=== PATIENT | male | born 1965 | race Caucasian/White ===

== ENCOUNTER 2018-07-10 11:53 | Outpatient (CLI) | payer OTHER, SELFPAY ==
[2018-07-10 13:34] LABS: ALT 39 U/L (12-78); AST 24 U/L (15-37); Albumin 3.8 g/dL (3.4-5.0); Alkaline Phosphatase 84 U/L (46-116); Anion Gap 9.4 mmol/L (3-11); BUN 17 mg/dL (7-18); Bilirubin, Total 0.6 mg/dL (0.2-1.0); CO2 27.6 mmol/L (21.0-32.0); CREATININE 1.01 mg/dL (0.70-1.30); Calcium 8.9 mg/dL (8.5-10.1); Chloride 102 mmol/L (98-107); Cholesterol 193 mg/dL (50-200); Glucose 99 mg/dL (70-100); HDL Cholesterol 52 mg/dL (40-60); LDL CHOLESTEROL 117 mg/dL (<100); Potassium 4.3 mmol/L (3.5-5.1); Sodium 139 mmol/L (136-145); Triglyceride 142 mg/dL (30-150)
[2018-07-10 13:50] LABS: Total Protein 6.8 g/dL (6.4-8.2)
== END 2018-07-10 12:13 ==
PROVIDERS: PCP Physician Assistant Medical; Visit Provider Nurse Practitioner Family
DX: E78.5 Hyperlipidemia, unspecified (principal); R00.0 Tachycardia, unspecified
CPT/HCPCS: 36415; 80053; 80061; 83721

== ENCOUNTER 2019-12-21 10:42 | Outpatient (REF) | payer OTHER, SELFPAY ==
[2019-12-21 19:57] LABS: ALT 36 U/L (16-63); AST 21 U/L (15-37); Calculated LDL 83 mg/dL (<100); Cholesterol 154 mg/dL (<200); Glucose 129 mg/dL (74-106); HDL Cholesterol 50 mg/dL (40-60); Triglyceride 109 mg/dL (<150)
[2019-12-21 20:10] LABS: Creatine Kinase 247 U/L (39-308)
== END 2019-12-21 11:02 ==
LOC: NCHCN 10:42
PROVIDERS: PCP Physician Assistant Medical; Visit Provider Nurse Practitioner Family
DX: Z00.00 Encounter for general adult medical examination without abnormal findings (principal); E78.5 Hyperlipidemia, unspecified; Z86.79 Personal history of other diseases of the circulatory system
CPT/HCPCS: 80061; 82550; 82947; 84450; 84460

== ENCOUNTER 2020-04-24 21:29 | Outpatient (REF) | payer OTHER, SELFPAY ==
[2020-04-24 19:12] LABS: Hemoglobin A1C 6.7 % (<5.7)
== END 2020-04-24 21:49 ==
LOC: NCHCN 21:29
PROVIDERS: PCP Physician Assistant Medical; Visit Provider Nurse Practitioner Family
DX: Z00.00 Encounter for general adult medical examination without abnormal findings (principal); R73.9 Hyperglycemia, unspecified
CPT/HCPCS: 83036

== ENCOUNTER 2020-05-12 18:00 | Outpatient (REF) | payer OTHER, SELFPAY ==
[2020-05-12 19:34] LABS: Anion Gap 9.2 mmol/L (3-11); BUN 23 mg/dL (7-18); CO2 25.8 mmol/L (21.0-32.0); CREATININE 1.15 mg/dL (0.70-1.30); Calcium 8.9 mg/dL (8.5-10.1); Chloride 104 mmol/L (98-107); Glucose 154 mg/dL (74-106); Potassium 3.8 mmol/L (3.5-5.1); Sodium 139 mmol/L (136-145)
== END 2020-05-12 18:20 ==
LOC: NCHCN 18:00
PROVIDERS: PCP Nurse Practitioner Family; Visit Provider Nurse Practitioner Family
DX: E11.9 Type 2 diabetes mellitus without complications (principal); E78.5 Hyperlipidemia, unspecified
CPT/HCPCS: 80048

== ENCOUNTER 2020-06-02 14:58 | Outpatient (REF) | payer OTHER, SELFPAY ==
--- NOTE | 2020-06-02 14:51 | SKI_PTH ---
PATIENT: Tree Luis LOC: [facility] U#:[id number] AGE/SX: 54/M ROOM: RE06/02/[address]: Lele Barnes DO : 1965 BED: DIS: 06/02/2020 SPEC #: [id number] RECD: 06/03/20 12:07 STATUS: CORIE REQ #: [id number] ARTURO: 06/02/20 14:[address]: Lele Barnes DEPT: Surgical Specimen RECD BY: Shy Russell ENTERED: 06/03/20 12:08 SP TYPE: SKI OTHR DR: Shoshana Wade Tissues: 1 - SKIN BIOPSY(SHAVE/PUNCH) Procedures: SKIN LEVEL 4 Comments: [id number] ([id number] [facility] [place])
== END 2020-06-02 15:18 ==
LOC: LBN 14:58
PROVIDERS: PCP Nurse Practitioner Family; Visit Provider Otolaryngology Otolaryngology/Facial Plastic Surgery
DX: L82.1 Other seborrheic keratosis (principal)
CPT/HCPCS: 88305

== ENCOUNTER 2020-06-23 21:36 | Outpatient (REF) | payer OTHER, SELFPAY ==
[2020-06-23 20:18] LABS: ALT 43 U/L (16-63); AST 25 U/L (15-37); HDL Cholesterol 47 mg/dL (40-60); LDL CHOLESTEROL 91 mg/dL (<100)
[2020-06-23 20:30] LABS: Creatine Kinase 202 U/L (39-308); Uric Acid 5.6 mg/dL (3.5-7.2)
== END 2020-06-23 21:56 ==
LOC: NCHCN 21:36
PROVIDERS: PCP Nurse Practitioner Family; Visit Provider Nurse Practitioner Family
DX: E78.5 Hyperlipidemia, unspecified (principal)
CPT/HCPCS: 82550; 83721; 83718; 84450; 84460; 84550

== ENCOUNTER 2020-12-15 19:55 | Outpatient (REF) | payer OTHER, SELFPAY ==
[2020-12-15 19:43] LABS: Hemoglobin A1C 6.4 % (<5.7)
[2020-12-16 17:20] LABS: PSA, Screening 0.4 ng/mL (0.0-3.5)
== END 2020-12-15 19:56 | disposition home or self-care (01) ==
LOC: NCHCN 19:55
PROVIDERS: PCP Nurse Practitioner Family; Visit Provider Nurse Practitioner Family
DX: Z00.00 Encounter for general adult medical examination without abnormal findings (principal); E11.9 Type 2 diabetes mellitus without complications; Z12.5 Encounter for screening for malignant neoplasm of prostate
CPT/HCPCS: 84153; 83036

== ENCOUNTER 2021-05-29 10:36 | Outpatient (REF) | payer OTHER, SELFPAY ==
[2021-05-30 16:10] LABS: COVID-19 RT-PCR UVMMC Result Negative (Negative)
== END 2021-05-29 10:37 | disposition home or self-care (01) ==
LOC: LBN 10:36
PROVIDERS: PCP Nurse Practitioner Family; Visit Provider Physician Assistant Medical
DX: Z20.822 Contact with and (suspected) exposure to COVID-19 (principal); J06.9 Acute upper respiratory infection, unspecified
CPT/HCPCS: U0003

== ENCOUNTER 2021-06-24 13:48 | Outpatient (REF) | payer OTHER, SELFPAY ==
[2021-06-24 22:20] LABS: Abs Immature Grans 0.03 10^3/uL (0.0-0.06); Absolute Basophil Count 0.02 10^3/uL (0.0-0.2); Absolute Eosinophil Count 0.13 10^3/uL (0.0-0.7); Absolute Lymphocyte Count 2.29 10^3/uL (1.2-3.4); Absolute Monocyte Count 0.74 10^3/uL (0.1-0.8); Absolute Neutrophil Count 4.06 10^3/uL (1.2-6.7); Basophils % 0.3; Eosinophils % 1.8; HCT 46.5 % (40.0-50.0); HGB 15.7 g/dL (13.5-17.5); Immature Grans % 0.4; Lymphocytes % 31.5; MCH 30.7 pg (27.0-33.0); MCHC 33.8 % (32.0-36.0); MPV 10.2 fL (8.0-11.0); Monocytes % 10.2; Neutrophils % 55.8; Nucleated RBC 0 %; Platelet Count 271 10^3/uL (130-400); RBC 5.11 10^6/uL (4.36-5.78); RDW 12.1 % (11.8-14.1); RDW-SD 40.1 fL; WBC 7.27 10^3/uL (4.4-10.8)
[2021-06-24 22:36] LABS: ALT 34 U/L (16-63); AST 26 U/L (15-37); Albumin 3.9 g/dL (3.4-5.0); Alkaline Phosphatase 104 U/L (46-116); Anion Gap 12.4 mmol/L (3-11); BUN 26 mg/dL (7-18); Bilirubin, Total 0.7 mg/dL (0.2-1.0); CO2 24.6 mmol/L (21.0-32.0); CREATININE 0.9 mg/dL (0.70-1.30); Calcium 8.9 mg/dL (8.5-10.1); Chloride 105 mmol/L (98-107); Glucose 89 mg/dL (74-106); Potassium 4.2 mmol/L (3.5-5.1); Sodium 142 mmol/L (136-145); Total Protein 6.9 g/dL (6.4-8.2)
== END 2021-06-24 13:49 | disposition home or self-care (01) ==
LOC: LBN 13:48
PROVIDERS: PCP Nurse Practitioner Family; Visit Provider Family Medicine
DX: E11.9 Type 2 diabetes mellitus without complications (principal); R05.8 Other specified cough
CPT/HCPCS: 80053; 85025

== ENCOUNTER 2021-06-24 16:31 | Outpatient (CLI) | payer OTHER, SELFPAY ==
--- NOTE | 2021-06-24 16:23 | DI.RAD_ITS ---
Exam(s) XR CHEST 2V PA LATERAL EXAM: XR CHEST 2V PA LATERAL CLINICAL HISTORY: COUGH, R05.8. TECHNIQUE: 2D digital imaging was performed. COMPARISON: CR CHEST 2 VIEWS PA,LAT from 06/06/2017 CR CHEST 2 VIEWS PA,LAT from 06/06/2017 CR CHEST 2 VIEWS PA,LAT from 01/25/2018 CR CHEST 2 VIEWS PA,LAT from 01/25/2018 FINDINGS: Heart size is normal. The mediastinum is not widened. Right lung is clear. Slightly increased markings behind left-sided heart are noted which probably ju st crowded vessels. No pleural effusions. No pneumothorax. IMPRESSION: No acute pulmonary findings. DATA REPOSITORY: RADIATION DOSE DELIVERED:
--- NOTE | 2021-06-24 16:53 | DI.VRAD_ITS ---
PROCEDURE INFORMATION: Exam: XR Chest Exam date and time: 06/24/2021 3:42 PM Age: 56 years old Clinical indication: Cough TECHNIQUE: Imaging protocol: XR of the chest. Views: 2 views. COMPARISON: CR CHEST 2 VIEWS PA,LAT 01/25/2018 10:19 PM FINDINGS: Lungs: Unremarkable. No consolidation. Pleural spaces: Unremarkable. No pleural effusion. No pneumothorax. Heart/Mediastinum: Unremarkable. No cardiomegaly. Bones/joints: Unremarkable. IMPRESSION: No acute findings. Dictated and Authenticated by: Caron Max MD. Ordering:MELONIE Mckeon MD
== END 2021-06-24 16:51 ==
PROVIDERS: PCP Nurse Practitioner Family; Visit Provider Family Medicine
DX: R05.8 Other specified cough (principal)
CPT/HCPCS: 71046

== ENCOUNTER 2022-04-20 21:03 | Outpatient (REF) | payer OTHER, SELFPAY ==
[2022-04-20 21:11] LABS: ALT 35 U/L (16-63); AST 23 U/L (15-37); Anion Gap 10.8 mmol/L (3-11); BUN 27 mg/dL (7-18); CO2 25.2 mmol/L (21.0-32.0); CREATININE 1.1 mg/dL (0.70-1.30); Calcium 9.2 mg/dL (8.5-10.1); Chloride 105 mmol/L (98-107); Glucose 98 mg/dL (74-106); HDL Cholesterol 51 mg/dL (40-60); LDL CHOLESTEROL 102 mg/dL (<100); Potassium 3.9 mmol/L (3.5-5.1); Sodium 141 mmol/L (136-145)
[2022-04-20 21:31] LABS: Creatine Kinase 176 U/L (39-308)
== END 2022-04-20 21:04 | disposition home or self-care (01) ==
LOC: NCHCN 21:03
PROVIDERS: PCP Nurse Practitioner Family; Visit Provider Nurse Practitioner Family
DX: E78.5 Hyperlipidemia, unspecified (principal)
CPT/HCPCS: 80048; 82550; 83721; 83718; 84450; 84460

== ENCOUNTER 2022-07-25 04:39 | Emergency (ER) | payer OTHER, SELFPAY ==
[2022-07-25 04:42] VITALS: BP 157/92; PULSE 89; RESP 20; O2SAT 94
--- NOTE | 2022-07-25 04:45 | DI.CT_ITS ---
Exam(s) CT RENAL COLIC WO EXAM: CT RENAL COLIC WO CLINICAL HISTORY: L flank pain, hxstones. TECHNIQUE: Imaging Protocol: Axial computed tomography images with coronal and sagittal reformatted images were created and reviewed. CONTRAST MATERIAL: Noncontrast COMPARISON: CT RENAL COLIC WO CONTRAST from 09/06/2010 FINDINGS: ABDOMEN: Lung Bases: Normal where visualized. Liver: Enlarged. Fatty infiltration. Two small cysts. No measurable mass. Gallbladder and biliary tract: No radiodense calculus or dilation. Pancreas: Normal density, no calcifications or inflammatory process. Spleen: Normal. Kidneys: Normal size, contour and axis. Small nonobstructing stone upper pole right kidney. Small no nobstructing stone lower pole left kidney. Mild left hydronephrosis secondary to a 1-[address] one at the ureterovesical junction versus bladder.. No masses seen. Adrenal glands: No masses seen. Abdominal Aorta: Abdominal portion non-dilated. Soft tissues: Small fatty containing umbilical hernia. PELVIS: Bladder: Nearly empty., no gross wall thickening. No evidence of stones.No visible mass. Bowel: No obstruction or bowel wall thickening. Diverticulosis descending and sigmoid colon. No evid ence of diverticulitis. Appendix normal. Reproductive: Unremarkable. Peritoneal cavity: No ascites, collection or mesenteric inflammatory response. Bones: Unremarkable for age.. Small fatty containing left inguinal hernia. IMPRESSION: Mild left hydronephrosis secondary to a 1-2 millimeter stone at the ureterovesical junction. RADIATION DOSE DELIVERED: 1,185.96mGy.cm Total DLP DATA REPOSITORY: All CT scans at this facility are submitted to the National Radiology Data Registry (NRDR) Dose Index Registry (DIR) with the [employer] (ACR). RADIATION OPTIMIZATION: All CT scans at this facility use at least one of these dose optimization te chniques: automated exposure control; mA and/or kV adjustment per patient size (includes targeted exa ms where dose is matched to clinical indication); or iterative reconstruction.
--- NOTE | 2022-07-25 04:56 | ED.GENADUL_ITS ---
Discharge Plan Disposition Patient Disposition: Home Condition: Improving Discharge Details Clinical Impression: Calculus of distal left ureter Primary Care Provider: Shoshana Wade ED Provider: Uriel Mejía Home Meds and New Rx's Prescriptions: Continued melatonin 3 mg capsule 3 mg PO HS PRN Centrum Silver Men 300-600-300 mcg tablet 1 tab PO DAILY metoprolol tartrate 25 mg tablet 25 mg PO BID metformin 500 mg tablet 500 mg PO BID cholecalciferol (vitamin D3) [Vitamin D3] 400 UNIT capsule 400 unit PO DAILY atorvastatin [Lipitor] 40 MG tablet 40 mg PO .QOD Label Comments: payales he takes it QOD. Discharge Instructions Instructions: Kidney Stones (ED), How to Strain Your Urine (ED) Additional Instructions: Please strain your urine as we discussed. Home to rest today. Small, frequent sips of fluids to maintain hydration. May use Tylenol and ibuprofen if needed for any further discomfort. Medical Decision Making 57-year-old male states he has had 2 days of flulike illness with body ache, low-grade fever and dry cough. Tonight he felt the abrupt onset of left flank pain radiating to his left groin associated with dark urine. He arrives to the ER alert and interactive. Most consistent with kidney stone, must exclude underlying viral process or dehydration. Patient had IV access established, screening labs obtained including viral swabs, patient given fluids and parenteral analgesia and referred for CT images. Analysis positive for large blood. Remainder of labs are reassuring. CT reveals bilateral nephro lithiasis with faint calculus at the distal left UVJ, and minimal left hydroureteronephrosis. Patient improved. Request discharge to home. His viral swabs were negative. HPI General Mode of arrival: ambulatory . Date/Time Provider Initiated Documentation: 07/25/22 04:39 . Limitations to Documentation: no limitations . Information obtained by: patient and family . History of Present Illness 57 year old M presents to the emergency department with the chief complaint of Left flank pain, described as moderate and similar to prior episodes, Quality is described as dull, and is localized to the back and left. Patient abdomen. Patient started experiencing this hour(s) and it has been intermittent and colicky. No relieving factors improve symptom(s), No exacerbating factors reported . Patient notes cough; denies chest pain, fever/chills and shortness of breath. Patient did receive the following treatments prior to arrival, none Related Data Home Medications Medication Instructions Recorded Confirmed atorvastatin 40 mg tablet (Lipitor) 40 mg PO .QOD 02/03/17 07/25/22 cholecalciferol (vitamin D3) 10 400 unit PO DAILY 01/13/18 07/25/22 mcg (400 unit) capsule (Vitamin D3) melatonin 3 mg capsule 3 mg PO HS PRN 04/29/20 07/25/22 metoprolol tartrate 25 mg tablet 25 mg PO BID 04/29/20 07/25/22 frjbidvi-wsv-hkgrm acid 300 1 tab PO DAILY 04/29/20 07/25/22 mcg-lycopene 600 mcg-lutein 300 mcg tablet (Centrum Silver Men) metformin 500 mg tablet 500 mg PO BID 05/01/20 07/25/22 Allergies Allergy/AdvReac Type Severity Reaction Status Date / Time No Known Allergies Allergy Unverified 05/01/20 09:17 General Stated Complaint: FlankPain CHAUNCEY: 3 Review of Systems Narrative: * 2 days upper respiratory illness with fever, chills, dry cough. 6 systems were reviewed and otherwise negative PFSH All Active Problems (Updated 07/25/22 @ 07:52 by Uriel Mejía MD) Calculus of distal left ureter (Acute) Nevus (Acute) Umbilical hernia (Acute) Medical History Cough Esophageal spasm Family history of colon cancer Hyperlipidemia Left knee pain Plantar fasciitis, right Right shoulder pain URI (upper respiratory infection) Surgical History Colonoscopy - IV Sedation Normal 2009 Colonoscopy - MAC (01/23/18) surgery to left fingers wisdome teeth removal Family History Other Colon cancer Social History Smoking/Tobacco Use Status: Former Tobacco Use Smoking risk assessment performed?: Yes Drug use: Never Do you feel safe in your relationship?: Yes Exam Narrative Exam Narrative: GEN: awake, alert, oriented 3. Pleasant, well groomed, interactive. HEAD: Normocephalic, atraumatic ENT: Mucous membranes moist, oropharynx unremarkable, External ear exam unremarkable EYES: PERRL, EOMI NECK: Full ROM, no ROMEO, no menigismus CHEST/RESP: Nontender, clear to auscultation bilateral, no wheeze/rhonchi/rales CARDIOVASCULAR: RRR, no murmur, rub sharath. 2+ Rad pulse bilateral ABDOMEN: Soft, tender left lower quadrant without rebound., no mass. +Bowel sounds. Left flank tender to percussion. EXT: Full ROM, no edema, no rash Neuro: Grossly normal neurologic exam, conversant, interactive. Psych: Speech fluent, thoughts congruent, affect normal Course Vital Signs Vital signs: Vital Signs Pulse 89 07/25/22 04:42 Respiratory Rate 20 07/25/22 04:42 Blood Pressure 157/92 H 07/25/22 04:42 Pulse Oximetry 94 07/25/22 04:42 Pulse 89 07/25/22 04:42 Respiratory Rate 20 07/25/22 04:42 Blood Pressure 157/92 H 07/25/22 04:42 Blood Pressure Position Sitting 07/25/22 04:42 Pulse Oximetry 94 07/25/22 04:42 Oxygen Delivery Method Room Air 07/25/22 04:42 Oxygen Flow Rate 0 07/25/22 04:42 Pain Level 4 07/25/22 04:42
[2022-07-25] MEDS: Ketorolac 15 MG/ML VIAL IVP (04:59)
[2022-07-25] MEDS: Normal Saline 500 ML 1000 ML IV (04:59)
[2022-07-25 05:01] LABS: Abs Immature Grans 0.04 10^3/uL (0.0-0.06); Absolute Basophil Count 0.04 10^3/uL (0.0-0.2); Absolute Eosinophil Count 0.02 10^3/uL (0.0-0.7); Absolute Monocyte Count 1.01 10^3/uL (0.1-0.8); Absolute Neutrophil Count 8.67 10^3/uL (1.2-6.7); Basophils % 0.4; Eosinophils % 0.2; HCT 48.4 % (40.0-50.0); HGB 16.9 g/dL (13.5-17.5); Immature Grans % 0.4; Lymphocytes % 8.4; MCH 32.1 pg (27.0-33.0); MCHC 34.9 % (32.0-36.0); MCV 92 fL (80-95); MPV 9.6 fL (8.0-11.0); Monocytes % 9.5; Neutrophils % 81.1; Platelet Count 232 10^3/uL (130-400); RBC 5.26 10^6/uL (4.36-5.78); RDW 11.6 % (11.8-14.1); RDW-SD 39.3 fL; WBC 10.68 10^3/uL (4.4-10.8)
[2022-07-25 05:07] LABS: Bilirubin Negative (Negative); Blood Large (Negative); Clarity Clear (Clear); Glucose 100 mg/dL (Negative); Ketones 40 mg/dL (Negative); Leukocyte Esterase Negative (Negative); Nitrite Negative (Negative); Specific Gravity >= 1.030 (1.005-1.025); Urobilinogen 0.2 EU/dL (Up TO 0.2)
[2022-07-25 05:17] LABS: Bacteria Rare HPF (Negative); C & S Indicated? No; Casts Negative LPF (Negative); Crystals Negative HPF (Negative); Epithelial Cells Rare HPF (Negative); Mucus Negative (Negative); WBC Negative HPF (0-5)
[2022-07-25 05:22] LABS: ALT 33 U/L (16-63); AST 23 U/L (15-37); Albumin 3.8 g/dL (3.4-5.0); Alkaline Phosphatase 103 U/L (46-116); Anion Gap 9.5 mmol/L (3-11); BUN 20 mg/dL (7-18); CO2 25.5 mmol/L (21.0-32.0); CREATININE 1.5 mg/dL (0.70-1.30); Calcium 8.8 mg/dL (8.5-10.1); Chloride 101 mmol/L (98-107); Estimated GFR 53.63 (mL/min/1.73m2); Glucose 225 mg/dL (74-106); Potassium 4.4 mmol/L (3.5-5.1); Sodium 136 mmol/L (136-145); Total Protein 7.4 g/dL (6.4-8.2)
[2022-07-25] MEDS: Ondansetron 4 MG/2 ML VIAL IVP (05:30)
--- NOTE | 2022-07-25 07:45 | DI.VRAD_ITS ---
PROCEDURE INFORMATION: Exam: CT Abdomen And Pelvis Without Contrast Exam date and time: 07/25/2022 5:21 AM Age: 57 years old Clinical indication: Abdominal pain; Flank; Left TECHNIQUE: Imaging protocol: Computed tomography of the abdomen and pelvis without contrast. COMPARISON: US AAA SCREENING 05/10/2022 6:59 AM FINDINGS: Minimal subsegmental atelectasis versus scarring Liver: Simple cysts. Fatty infiltration and mild hepatomegaly Gallbladder and bile ducts: Normal. No calcified stones. No ductal dilation. Pancreas: Normal. No ductal dilation. Spleen: Normal. No splenomegaly. Adrenal glands: Normal. No mass. Kidneys and ureters: Minimal left hydroureteronephrosis. Bilateral nephrolithiasis/nephrocalcinosis Stomach and bowel: Colonic diverticulosis. No obstruction. No mucosal thickening. Appendix: No evidence of appendicitis. Intraperitoneal space: Unremarkable. No free air. No significant fluid collection. Vasculature: Unremarkable. No abdominal aortic aneurysm. Lymph nodes: Unremarkable. No enlarged lymph nodes. Urinary bladder: Faint calculus at the distal left UVJ projecting into the bladder axial image 156 Reproductive: Unremarkable as visualized. Bones/joints: Unremarkable. No acute fracture. Soft tissues: Small fat containing periumbilical hernia IMPRESSION: Faint distal left UVJ calculus projecting into the bladder with minimal left hydroureteronephrosis Faint nephrocalcinosis/nephrolithiasis Colonic diverticulosis without diverticulitis Dictated and Authenticated by: Weston Larsen MD. Ordering:HIEU Trevino MD
== END 2022-07-25 08:03 | disposition home or self-care (01) ==
PROVIDERS: Emergency Provider Emergency Medicine; PCP Nurse Practitioner Family
DX: N13.2 Hydronephrosis with renal and ureteral calculous obstruction (principal); Z20.822 Contact with and (suspected) exposure to COVID-19
CPT/HCPCS: 36415; 80053; 96361; 96374; 96375; 99284; 74176; 81003; 81015; 85025; J1885; J2405

== ENCOUNTER 2022-09-20 16:11 | Outpatient (CLI) | payer OTHER, SELFPAY ==
--- NOTE | 2022-09-20 16:00 | DI.RAD_ITS ---
Exam(s) XR CHEST 2V PA LATERAL EXAM: XR CHEST 2V PA LATERAL CLINICAL HISTORY: COUGH-R05.8 TECHNIQUE: 2D digital imaging was performed of the chest. Two images were obtained. PA and lateral views were obtained. COMPARISON: CR,XR XR CHEST 2V PA LATERAL from 06/24/2021 FINDINGS: MEDIASTINUM: Normal. HEART: Normal. PULMONARY VASCULATURE: Normal. LUNGS: Clear. PLEURAL SPACE: No pleural effusion or pneumothorax. BONE:Within normal limits for the patient's age. OTHER FINDINGS:Normal. IMPRESSION: No acute pulmonary findings. DATA REPOSITORY: RADIATION DOSE DELIVERED:
== END 2022-09-20 16:31 ==
LOC: DI 16:12
PROVIDERS: PCP Nurse Practitioner Family; Visit Provider Nurse Practitioner Family
DX: R05.8 Other specified cough (principal)
CPT/HCPCS: 71046

== ENCOUNTER 2022-09-21 09:23 | Outpatient (CLI) | payer OTHER, SELFPAY ==
--- NOTE | 2022-09-21 | DI.CT_ITS ---
Exam(s) CT CHEST PE CTA EXAM: CT CHEST PE CTA CLINICAL HISTORY: HYPOXIA, R09.02. TECHNIQUE: Imaging Protocol: CT angiography of the chest was performed using pulmonary embolus carey col. Multi planar reconstructions were performed. CONTRAST MATERIAL: Intravenous: Omnipaque 350 Contrast volume: 100 cc COMPARISON: CT CT RENAL COLIC WO from 07/25/2022 FINDINGS: CHEST: PULMONARY ARTERIES: There are no intraluminal filling defects to suggest acute pulmonary emboli. LUNGS: There are no infiltrates nor evidence of pulmonary infarction.. There are no pleural effusions . MEDIASTINUM: There is no hilar nor mediastinal adenopathy. Visualized thyroid unremarkable. CARDIAC: Heart size is upper normal. There is no pericardial effusion.Caliber of the thoracic aorta is within normal limits. There is no significant shift of the interventricular septum. PARTIALLY VISUALIZED UPPERMOST ABDOMEN: No obvious findings OSSEOUS: No significant osseous lesions.No fractures.. IMPRESSION: 1. No evidence of acute pulmonary emboli. No evidence of pulmonary infarction.No pleural effusions. 2. No infiltrates. No intrathoracic adenopathy evident. 3.No evidence of aortic dissection. No pericardial effusion. RADIATION DOSE DELIVERED: Total DLP DATA REPOSITORY: All CT scans at this facility are submitted to the National Radiology Data Registry (NRDR) Dose Index Registry (DIR) with the [employer] (ACR). RADIATION OPTIMIZATION: All CT scans at this facility use at least one of these dose optimization te chniques: automated exposure control; mA and/or kV adjustment per patient size (includes targeted exa ms where dose is matched to clinical indication); or iterative reconstruction.
[2022-09-21 15:11] LABS: Abs Immature Grans 0.03 10^3/uL (0.0-0.06); Absolute Basophil Count 0.04 10^3/uL (0.0-0.2); Absolute Lymphocyte Count 2.41 10^3/uL (1.2-3.4); Absolute Monocyte Count 0.54 10^3/uL (0.1-0.8); Basophils % 0.5; Eosinophils % 1.3; HCT 46.2 % (40.0-50.0); HGB 15.9 g/dL (13.5-17.5); Immature Grans % 0.4; MCH 31.7 pg (27.0-33.0); MCHC 34.4 % (32.0-36.0); MCV 92 fL (80-95); MPV 9.2 fL (8.0-11.0); Monocytes % 7.2; Neutrophils % 58.6; Platelet Count 284 10^3/uL (130-400); RBC 5.02 10^6/uL (4.36-5.78); RDW 12.3 % (11.8-14.1); RDW-SD 41.2 fL; WBC 7.52 10^3/uL (4.4-10.8)
[2022-09-21 15:20] LABS: Anion Gap 7.9 mmol/L (3-11); BUN 21 mg/dL (7-18); CO2 27.1 mmol/L (21.0-32.0); CREATININE 1.1 mg/dL (0.70-1.30); Calcium 8.8 mg/dL (8.5-10.1); Chloride 103 mmol/L (98-107); Estimated GFR 77.81 (mL/min/1.73m2); Glucose 214 mg/dL (74-106); Potassium 3.7 mmol/L (3.5-5.1); Sodium 138 mmol/L (136-145)
[2022-09-21] MEDS: Normal Saline - Diluent 50 ML VIAL IJ (15:53)
[2022-09-21 15:57] LABS: D-Dimer 394 ng/mlFEU (<500)
[2022-09-21] MEDS: Omnipaque 350 MG/ML 500 ML BTL-Imaging package 97 ML IJ (15:58)
[2022-09-21] MEDS: Normal Saline Flush 10 ML SYR IVP (15:58)
== END 2022-09-21 09:43 ==
LOC: DI 09:24
PROVIDERS: PCP Nurse Practitioner Family; Visit Provider Nurse Practitioner Family
DX: R09.02 Hypoxemia (principal)
CPT/HCPCS: 71275; 80048; 85025; 85379

== ENCOUNTER 2022-09-27 01:20 | Outpatient (CLI) | payer OTHER, SELFPAY ==
--- NOTE | 2022-09-27 11:20 | DI.US_ITS ---
APPROVED REPORT EXAM: Comprehensive 2D, Doppler, and color-flow Echocardiogram Patient Location: Out-Patient [employer] Supervisor: Alicia Quiroga RDCS (AE) Indications: Tachycardia, Hypoxia Other Information Study Quality: Adequate Conclusion Normal left ventricular wall thickness and chamber size. Estimated ejection fraction is 60%. Wall m otion is normal Normal right ventricular size and systolic function Both atria are normal in size There is no structural or hemodynamically significant valvular disease Mildly dilated ascending aorta measuring 3.83 cm Normal estimated right ventricular systolic pressure 25 mmHg Wall motion Left Ventricle The left ventricle is normal size. The left ventricular systolic function is normal. The left ventric ular ejection fraction is within the normal range. There is normal left ventricular wall thickness. T here is normal LV segmental wall motion. There is no ventricular septal defect visualized. LVEF is 60 %. Right Ventricle The right ventricle is normal size. The right ventricular systolic function is normal. The RVSP is 25 .0mmHg. Atria The left atrium size is normal. The right atrium size is normal. The interatrial septum is intact wit h no evidence for an atrial septal defect. Aortic Valve The aortic valve is normal in structure. Aortic valve is trileaflet. There is no aortic valvular sten osis. No aortic regurgitation is present. Mitral Valve The mitral valve is normal in structure. No evidence of mitral valve stenosis. Trace to mild mitral r egurgitation. Tricuspid Valve The tricuspid valve is normal in structure. There is no tricuspid valve stenosis. Trace tricuspid reg urgitation. Pulmonic Valve The pulmonary valve is normal in structure. There is no pulmonic valvular stenosis. Mild pulmonic reg urgitation. Great Vessels The aortic root is normal in size. The ascending aorta is mildly dilated. Aortic arch is normal in ca liber. IVC is normal in size and collapses >50% with inspiration. Pericardium There is no pericardial effusion. 2D Dimensions IVSD d PLAX 0.93 cm M: 0.6-1.2 LV Vol A2C d MOD 101.2 mL LVPW d PLAX 0.94 cm M: 0.6 - 1.2 LV Vol A4C d MOD 112.4 mL LVID d PLAX 4.77 cm M: 4.2 - 5.8 LA vol/ BSA A2C s A-L 17.8 mL/m2 LVDs 3.25 cm M: 2.5 - 4.0 LA vol/ BSA A4C s A-L 20.1 mL/m2 Ao Root d 2.97 cm M: 3.1 - 3.7 LA Vol/ BSA Biplane s A-L 20.0 mL/m2 RA Area A4C 15.50 cm2 LA Area A4C s MOD 18.06 cm2 RA Vol/ BSA A4C s A-L 17.1 mL/m2 LA Area A2C s MOD 16.09 cm2 Ao Asc Diam d 3.83 cm M: 2.6 - 3.4 LV EF A4C MOD 60.6 % LV EF Teichholz 59.5 % LV EF A2C MOD 58.3 % LVEF (Dowell's) 60.57 % M: 52 - 72 LV EF Biplane MOD 60.6 % LV Volume 77.84 mL M: 62 - 150 SV 66.85 mL LV Volume Index 31.90 mL/m2 M: 34 - 74 SV Index 27.44 mL/m2 LV Vol Biplane MOD 110.4 mL FS 31.60 % M-Mode TAPSE 2.04 cm (M/F) >1.7 LV Diastology MV E' medial 0.081 (>0.07 m/s) E/A Ratio 0.9 LV E/e MED 8.95 (<14) MV E Vmax 0.73 (0.4-1.3 m/s) MV E' lateral 0.139 (>0.1 m/s) MV A Vmax 0.80 (0.4-1.3 m/s) LV E/e LAT 5.25 (<14) MV E/A Ratio 0.88 MV E/E' medial 8.96 MV E/E' lateral 5.27 Aortic Valve LVOT Area 3.65 cm2 AoV Area Vmax 2.79 cm2 LVOT Vmax 1.08 m/s AoV Area/ BSA (Vmax) 1.14 cm2/m2 LVOT Mean Alexandro. 0.71 m/s RIYA Mean Alexandro. 2.55 cm2 LVOT Peak Grad 4.7 mmHg RIYA Mean Alexandro. Index 1.05 cm2/m2 LVOT Mean Grad 2.4 mmHg LVOT VTI 0.239 m LVOT Diam s 2.15 cm AoV Vmax 1.42 m/s Velocity Ratio 0.76 AoV Mean Alexandro. 1.01 m/s AoV Peak Grad 8.0 mmHg LVOT SV 87.43 mL AoV Mean Grad 4.5 mmHg AoV VTI 0.265 m AoV Area VTI 3.31 cm2 AoV Area/ BSA (VTI) 1.36 cm/m2 Mitral Valve MV DT 247 (160-240 msec) MV PHT 72 msec MV Area PHT 3.07 cm2 MV VTI 0.346 m MV Area VTI 2.52 (4.0-6.0 cm2) Pulmonary Valve PV Vmax 1.11 (0.5-1.5 m/s) RVOT Peak Gr. 1.03 mmHg PV Peak Grad 4.9 mmHg RVOT Mean Gr. 0.55 mmHg PV Mean Grad 2.6 mmHg RVOT VTI 0.112 m PV VTI 0.198 m RVOT Vmax 0.51 m/s Tricuspid Valve TR Peak Grad 22.0 mmHg TR Vmax 2.35 m/s RA Pressure 3.00 mmHg RVSP (TR) 25.0 mmHg
== END 2022-09-27 01:40 ==
LOC: DI 01:20
PROVIDERS: PCP Nurse Practitioner Family; Visit Provider Nurse Practitioner Family
DX: I47.1 Supraventricular tachycardia (principal)
CPT/HCPCS: 93306

== ENCOUNTER 2022-09-27 04:21 | Outpatient (CLI) | payer OTHER, SELFPAY ==
[2022-09-27] MEDS: Inhaler, Assist Device 1 EACH MC (16:29)
[2022-09-27] MEDS: Albuterol HFA 18 GM 200 PUFF INH IH (16:29)
--- NOTE | 2022-09-28 13:56 | W.PFT ---
Date of service: 09/27/22 Time of Service: 15:23 Pulmonary Function Test Result Requesting Provider Shoshana Wade Indications: Cough, hypoxia Interpretation Spirometry: There is no airflow limitation. There is no significant bronchodilator response Lung Volumes: Normal lung volumes Diffusion Capacity: Normal diffusion Airway Pressure: Normal airways resistance Impression Normal pulmonary function testing. Clinical Correlation therefore is recommended.
== END 2022-09-27 04:22 | disposition home or self-care (01) ==
LOC: RT 04:21 → LBN 21:08
PROVIDERS: PCP Nurse Practitioner Family; Visit Provider Nurse Practitioner Family
DX: R09.02 Hypoxemia (principal); R05.8 Other specified cough
CPT/HCPCS: 94060; 94726; 94729

== ENCOUNTER 2022-09-30 14:47 | Outpatient (RCR) | payer OTHER, SELFPAY ==
--- NOTE | 2022-09-30 14:45 | HOLTER_ITS ---
APPROVED REPORT Conclusion This is a 48-hour Holter monitor ordered for tachycardia and hypoxia Rhythm throughout was sinus with an average heart rate of 78. Minimum was 56, maximum 119 There were very rare isolated ventricular ectopic beats There were very rare isolated atrial premature beats. There was one self-limited atrial run, 10 beat s in duration There was no atrial fibrillation, no high-grade AV block, no pauses greater than 3 seconds
== END 2022-10-22 23:59 | disposition home or self-care (01) ==
LOC: CARDOPNVT 14:47
PROVIDERS: PCP Nurse Practitioner Family; Visit Provider Nurse Practitioner Family
DX: R00.0 Tachycardia, unspecified (principal); R09.02 Hypoxemia
CPT/HCPCS: 93225; 93226

== ENCOUNTER 2022-10-18 09:34 | Outpatient (CLI) | payer OTHER, SELFPAY ==
--- NOTE | 2022-10-18 09:30 | RT.EKG_ITS ---
APPROVED REPORT Exam: Resting ECG Reason for Exam: tachycardia Patient Location: O HR:96 bpm ECG Measurements Heart Rate 96 AXIS KS 134 P 46 QRSd 100 QRS 42 QT 336 T 31 QTc 425 Conclusion Sinus rhythm...normal P axis, V-rate 50- 99 Normal Electrocardiogram
== END 2022-10-18 09:35 | disposition home or self-care (01) ==
LOC: DI.CARD 09:35
PROVIDERS: PCP Nurse Practitioner Family; Visit Provider Internal Medicine Cardiovascular Disease
DX: R00.0 Tachycardia, unspecified (principal); Z86.79 Personal history of other diseases of the circulatory system
CPT/HCPCS: 93010

== ENCOUNTER 2023-01-07 13:16 | Day surgery (SDC) | payer OTHER, SELFPAY ==
--- NOTE | 2023-01-06 16:24 | W.COLOREPORT ---
Date of service: 01/07/23 Time of Service: 15:00 Colonoscopy Report Date of procedure: 01/07/23 Pre-op diagnosis general: Family history of CRC/adenomatous polyp/diverticula Post-op diagnosis procedure note: same Surgeon: Lucille Bermudez Anesthesia Type: General:No Airway Estimated blood loss (mL): 0 Pathology: none sent Complications: None Disposition: same day Prep: Miralax/Dulcolax Retraction Time: 16 mins Procedure Description: After informed consent was obtained the patient was taken to the procedure room and placed in a left decubitous position. Monitors were applied and a time out was done. The patients name, date of , procedure, allergies to medications and metal in their body was reviewed. The patient was then sedated. Once sedated and comfortable a rectal exam was done. External exam was normal. Internal exam revealed a normal sphincter tone and no palpable masses. The scope was then introduced and retrofelexed. No internal hemorrhoids were identified. The scope was then advanced to the cecum w/out difficulty. The TI and appendiceal orifice were identified. The prep was BBPS II in all segments for total of 6. The scope was then slowly retracted over 16 minutes back into the rectum. No polyps or AVMs are visualized today. There are moderate amount of [place] diverticulum confined to the sigmoid colon. There are no signs of active bleeding or infection. The mucosa and vascular pattern are otherwise normal. The scope was removed and the patient was woken up and taken back to Same day surgery in stable condition. The patient tolerated the procedure well and there were no immediate complications. Follow up: The patient should follow up in 5 years unless they develop changes in bowel habits or other new gastrointestinal complaints.
--- NOTE | 2023-01-06 16:31 | PDOC.DSDIS_ITS ---
Date of service: 01/07/23 Time of Service: 15:57 Discharge Plan Disposition Patient Disposition: Home Condition: Good Discharge Details Reason For Visit: colon scope Attending Provider: Lucille Bermudez Primary Care Provider: Shoshana Wade Home Meds and New Rx's Prescriptions: Continued melatonin 3 mg capsule 3 mg PO HS PRN Centrum Silver Men 300-600-300 mcg tablet 1 tab PO DAILY metoprolol tartrate 25 mg tablet 25 mg PO BID metformin 500 mg tablet 500 mg PO BID omeprazole 20 mg capsule,delayed release(DR/EC) 20 mg PO DAILY Qty: 90 0RF aspirin 81 mg tablet,chewable 81 mg PO DAILY atorvastatin [Lipitor] 40 mg tablet 40 mg PO DAILY Ultra CoQ10 75 mg capsule 75 mg PO DAILY Discharge Instructions Additional Instructions: [facility] Colonoscopy Post- Op Instructions Instructions for Everyone who is given Anesthesia: For your safety, please do the following for the next twenty-four (24) hours: *Do Not operate a motor vehicle (car, truck, motorcycle, etc.) *Do Not drink alcoholic beverages or use any recreational drugs for the first 24 hours or while taking pain medications. The medications in your body may have a reaction that can be dangerous. *Do Not make any important decisions or sign any important papers. Findings: No polyps moderate diverticula-make sure you are moving your bowels on a regular basis and not straining to go to the bathroom Follow up: Repeat colonoscopy in 5 years time If you should ever notice any pain or difficulty having a bowel movement, blood in the stool, unexplained weight loss, or change in your bowel habits, please contact your health provider 1. No lifting over 20 pounds or strenuous activity for the first 24 hours after your procedure. After 24 hours there are no restrictions on your activity but you may feel fatigued for a few days. 2. After you arrive home you may have a light meal and return to your normal diet as you can tolerate it without feeling sick to your stomach. 3. You may have a bloated, gaseous feeling in your belly (abdomen) after a colonoscopy. Passing gas and belching will help. Walking or lying down on your left side with your knees flexed may relieve the discomfort. Call the office at [phone] (Office) or [phone] (Hospital) right away if you notice any of the following: a.Vomiting of blood or ?coffee ground stools?. b.Rectal bleeding 1Tbsp, blood clots or continuous bleeding. c.Severe belly (abdominal) pain. d.A hard distended belly (abdomen) and an inability to pass gas. 4. Please don?t expect to have a normal BM (bowel movement) for 2-3 days after your procedure. 5. If there are questions regarding the findings of your procedure, please contact your doctor 6. If you are unable to contact your doctor with a problem, contact the hospital at [phone]. 7. Continue all your regular medications unless directed otherwise. I understand the above instructions and have no questions. Signature of Patient or Adult Escort Name of Responsible Adult Escort Signature of Nurse Date/Time Activity:: see above Diet:: see above Discharge Orders Discharge Orders: Discharge Order (Routine); Ordered 01/07/23 Ordered By: Lucille Bermudez DS: Diagnosis Discharge Diagnosis (1) GERD (gastroesophageal reflux disease): Status: Chronic (2) Diabetes mellitus: Status: Chronic (3) Diverticula of colon: Status: Acute (4) Adenomatous polyps: Status: Acute Asessment and Plan: The patient is seen and examined after their colonoscopy.? The patient has been able to pass gas.? They are not having abdominal pain.? They have been able to tolerate liquids and a snack.? They do not have any nausea or vomiting.? They are not having any chest pain or shortness of breath.??? They are not having any rectal bleeding. Their vital signs have been stable-see nursing notes. We discussed findings during their colonoscopy, and any biopsies that were done/polyps that were removed. The patient will be sent a letter with any biopsy results, and when to repeat the colonoscopy.-see discharge instructions. Patient was given explicit instructions to follow-up regarding colonoscopy-refer to discharge instructions.? We reviewed resumption of medications. Patient verbalized understanding and discharged in stable and satisfactory condition- See nursing notes.
--- NOTE | 2023-01-06 16:33 | W.PM.HP.N ---
Date of service: 01/07/23 Time of Service: 15:18 Assessment and Plan Assessment and plan (1) Adenomatous polyps: Status: Acute Assessment and plan: Plan: Colonoscopy w/ general & natural airway. The?patient will be scheduled by my office. A complete H & P is required within 30 days of the procedure.? GETA w/natural airway is used for the colonoscopy.? Informed consent is obtained for the procedural (explained in simple layman's terms that?the pt and/or family could understand) explaining risks vs benefits and alternatives to the procedure and consequences if we do not do the procedure and need/rational for the procedure. Risks include but are not limited to: bleeding, infection, perforation of colon.? This would necessitate emergency surgery to repair the damage w/ possible ostomy; and other associated complications w/ the required surgery. ? Also complications of anesthesia including aspiration, AZ/CVA/, inability to complete the procedure. I discussed with the?patient would they could expect during the procedure, post procedure and recovery time and risks.? The patient understands that they need to have a ride home after the procedure.? The patient was given all this information in writing and expressed understanding. If there are any questions or concerns please feel free to contact our office.? Generally Colonoscopy does not require antibiotics prophylaxis, (2) Diverticula of colon: Status: Acute (3) GERD (gastroesophageal reflux disease): Status: Chronic (4) Chronic cough: Status: Acute (5) Diabetes mellitus: Status: Chronic (6) Family history of colon cancer in father: Status: Acute History of Present Illness Narrative: 01/07/23: Patient is here today for colonoscopy for: Family history of CRC/adenomatous polyp/diverticula.??? They completed a bowel prep with just a clear yellow residual effluent.? They not having any chest pain or shortness of breath, currently.? They are not experiencing any fever or chills.? They deny any productive cough or upper respiratory tract infection signs or symptoms.? They are not having abdominal pain, or nausea and vomiting.? They have not had any changes in medications, past medical history or past surgical history since previously being seen in the office. They have not had any accidents or have been in the ER since the clinic pre-operative evaluation. ??I reviewed the procedure with the patient today, including risks and benefits of the procedure, and what they could expect at home for recovery.? All questions are answered to the patient?s satisfaction today, and they are stable to proceed with the proposed procedure. They denies problems with constipation, diarrhea.? They deny any pain or difficulty with bowel movements, or rectal bleeding.? There is family history of any colon cancer. Father- 70. ? Pt has not had any weight loss.? Their appetite is good.? ?They deny heart, lung, or kidney problems. They are not having heartburn or indigestion. They have not had any prior colo-rectal surgery.? ? They deny any problems with anesthesia in the past. He has had 2 colonoscopies in the past. He has had adenomatous polyps in the past. He does have a family history of colorectal cancer. Anesthesia: general (without airway) Previous surgical intolerances: No Previous surgical complications: No Pulmonary risk factors: Date of surgery: Planned procedure: Yes Sleep apnea risks: No COPD/Asthma/Smoker: Can climb one flight of stairs (12-13 steps) in less than 30 seconds without stopping and without symptoms: Yes The surgery proposed for this patient is: low risk Active cardiac conditions: none Active risk factors: none ASA (acetylsalicylic acid): used Beta blockers:used Kidneys: no concerns DM:yes PSHx: finger surgery CE. ?Patient needs to be Natural airway general because of:? Medical conditions/airway control/ ?Pain control? Meds/NKDA/PMHx/PSHx: see Hy[facility] ?ROS: 4 point ROS neg other than the symptoms noted above in the HPI. Pulm Consult 12/28/22: This is a 57 yo returning to clinic for chronic cough. The cough has resolved. This likely was a post viral cough. These sometimes can take 3-5 months to fully resolve depending on individual patient sensitivities. He did not notice any improvement with omeprazole, so I did tell him he could stop it and gauge for symptoms, and simply restart it if things worsen. There is not pulmonary pathology present. Chronic cough, resolved - can stop PPI HPI Pulmonary History Chronic Cough - normal PFT's- normal echo- omeprazole?Never Smoker? This is a 57 yo returning to pulmonary clinic for chronic cough. At his last visit he was started on a PPI as a trial. He has since also seen cardiology for tachycardia, however was found to have no concerning cardiac pathology. Today, he states he no longer has a cough. He had an illness in the winter which the cough stemmed from. The omeprazole has not changed anything clinically. Cardiology 10/14: Patient has had cardiac testing in concerns for possible tachycardia and his chronic cough.? EKG is normal.? Echocardiogram shows normal left ventricular function, no valvular disease.? Holter monitoring showed predominant sinus rhythm, normal heart rates, no concerning dysrhythmias.? Patient describes above average exercise tolerance without any exertional symptoms concerning for angina.? At this point I do not think he needs additional cardiac testing such as a stress test.? I suspect he may have had a viral illness with residual cough and hypoxia which is now significantly improved and which would be expected to resolve We have not scheduled a cardiac follow-up but remain available if new questions or concerns arise ?Orders EKG Today R00.0 - Tachycardia, unspecified, Z86.79 - Personal history of other diseases of the circulatory system ? This 57-year-old man presents for cardiac evaluation.? He has a history of diabetes dyslipidemia and hypertension.? He reports that he was well until approximately June when he developed a cough.? The cough was quite severe and he would get paroxysms where he would feel very short of breath.? He went to see his primary care provider.? Reportedly a 6-minute walk test was undertaken.? Patient says this was quite difficult because he had to go up and down a very narrow corridor and dodge flags that were hanging down.? He did not have any chest discomfort and it does not sound like he became particularly short of breath.? He states his heart rate got up as high as 117.? The report from the doctor said it got as high as 176.? He was reportedly hypoxic.? Because of this he was started on metoprolol and referred for further evaluation.? He had a chest x-ray done which was normal.? He had a CAT scan of the chest to exclude pulmonary emboli which was also normal, no additional findings.? He had an echocardiogram done.? This reported preserved left ventricular systolic function with an estimated ejection fraction of 60%.? Right ventricular systolic pressure was estimated to be 25 mmHg, normal.? An incidental finding was a mildly dilated ascending aorta measuring 3.83 cm.? There was no valvular disease.? He also had a Holter monitor done which showed predominant sinus rhythm with an average heart rate of 78.? Minimum was 56, maximum 119.? There were rare atrial and ventricular ectopic beats, one 10 beat self-limited atrial run.? He had cardiac monitoring done previously with similar findings in 2018 Patient works as a contractor.? Overall he is active in the course of his work.? He reports he can go up and down stairs even carrying heavy loads without any symptoms of shortness of breath or chest discomfort.? He does not have palpitations dizziness or lightheadedness He saw pulmonary.? They wondered if gastroesophageal reflux was contributing to his cough and started him on omeprazole.? The cough is gradually improving, currently significantly better than before. EKG today shows sinus rhythm at 96 questionable left atrial abnormality otherwise normal CE 2018: OPERATIVE PROCEDURE: ? After informed consent was obtained, the patient was taken to the endoscopy suite and placed in the left decubitus position.? Monitors were applied and a time-out was done.? The patient's name, , procedure type, allergies to medications and metal in his body were all reviewed. ? The patient was then given sedation. ? Once sedated and comfortable, ? a rectal examination was done. ? External examination was normal.? Internal examination revealed normal sphincter tone, no palpable masses and a smooth prostate.? The scope was introduced and retroflexed, no internal hemorrhoids were noted. ? The scope was straightened and advanced to the cecum without difficulty.? The scope was then slowly retracted over 16 minutes back into the rectum. ? Three polyps were removed, one in the descending colon and two in the sigmoid colon.? The patient was also noted to have moderate diverticulosis of the descending and sigmoid colon.? Once in the rectum, the scope was removed.? The patient was woken up and taken back Day Surgery Unit in stable condition. ? ? FOLLOW-UP:? 5 years for his next colonoscopy.? There is no path report associated with this procedure note. Review of Systems All systems reviewed & are unremarkable except as noted in HPI and below PFSH All Active Problems Family history of colon cancer in father (Acute) Adenomatous polyps (Acute) Diverticula of colon (Acute) GERD (gastroesophageal reflux disease) (Chronic) Chronic cough (Acute) Plantar fasciitis (Acute) Hx of supraventricular tachycardia (Acute) Premature ventricular beat (Acute) Diabetes mellitus (Chronic) Joint pain (Acute) Seasonal allergies (Acute) Sequelae of injury of head (Acute) Tachycardia (Acute) Syncope and collapse (Acute) Ascending aorta dilatation (Acute) Fatty liver (Acute) Inguinal hernia (Acute) Nephrolithiasis (Chronic) Sinusitis (Acute) Nevus (Acute) Umbilical hernia (Acute) Medical History Cough Esophageal spasm Family history of colon cancer Hyperlipidemia Hypoxia Inguinal hernia, left Left knee pain Plantar fasciitis, right Right shoulder pain URI (upper respiratory infection) Surgical History Colonoscopy - IV Sedation Normal 2009 Colonoscopy - MAC (01/23/18) surgery to left fingers wisdome teeth removal Family History Other Colon cancer Social History (Updated 10/18/22 @ 14:23 by Adrienne Baker RN) Smoking/Tobacco Use Status: Former Tobacco Use Smoking risk assessment performed?: Yes Alcohol Intake: current Alcohol Intake frequency: a few times a week Alcohol type: beer Drug use: Never Substance use type: does not use Household members: spouse Housing: house Number of Children: 3 number of grandchildren: 5 What is your relationship status?: Panel score (0-1 are the most socially isolated patients): 1 Do you feel safe at home: Yes Do you feel safe in your relationship?: Yes Meds Allergies and Home Medications Allergies Allergy/AdvReac Type Severity Reaction Status Date / Time No Known Allergies Allergy Unverified 01/07/23 14:22 Home Medications Medication Instructions Recorded Confirmed Type melatonin 3 mg capsule 3 mg PO HS PRN 04/29/20 01/07/23 History metoprolol tartrate 25 mg tablet 25 mg PO BID 04/29/20 01/07/23 History fgcdmgqc-vap-fdfqc acid 300 1 tab PO DAILY 04/29/20 01/07/23 History mcg-lycopene 600 mcg-lutein 300 mcg tablet (Centrum Silver Men) metformin 500 mg tablet 500 mg PO BID 05/01/20 01/07/23 History aspirin 81 mg chewable tablet 81 mg PO DAILY 10/01/22 01/07/23 History atorvastatin 40 mg tablet (Lipitor) 40 mg PO DAILY 10/01/22 01/07/23 History omeprazole 20 mg capsule,delayed 20 mg PO DAILY #90 caps 10/08/22 01/07/23 Rx release coenzyme Q10 75 mg capsule (Ultra 75 mg PO DAILY 12/23/22 01/07/23 History CoQ10) Exam Narrative Exam Narrative: PHYSICAL EXAM GENERAL APPEARANCE: Alert, healthy appearance, oriented, x 3,? in no acute distress HYDRATION: Well hydrated HEAD, EYES, EARS, NECK, THROAT: Head is normocephalic, pupils equal, round, reactive to light and accommodation, ocular movement intact, sclera clear and no jaundice. ?Dentition intact. No LUNGS: normal respiration/normal chest excursion. ?Clear to auscultation bilaterally. ?No wheeze. ?HEART: Regular rate and rhythm. no murmurs EXTREMITY: No edema or cyanosis.? no leg pain, redness, swelling.? ABDOMEN: soft and non-tender to palpation.? Normal bowel sounds.? Time Spent Time spent with Patient: <40 minutes Time was spent: preparing to see the patient(eg.review tests), obtaining and/or reviewing separately otained hiistory, ordering medications,tests, procedures, referring, communicating with other health career orientation teacher, indepentently interpreting results and counseling the patient
[2023-01-07 14:17] VITALS: BP 145/92; PULSE 76; RESP 16; TEMP 36.5; O2SAT 98
--- NOTE | 2023-01-07 14:57 | ANES.PREOP_ITS ---
General Info Date of Service Date Performed: 01/07/23 Height: 6 ft 4 in Weight: 113.6 kg Body Mass Index (BMI): 30.4 Surgical Procedure: Operation Date: 01/07/23 14:05 Proposed Procedure Side Surgeon roddy Bermudez, Meds Allergies and Home Medications Allergies Allergy/AdvReac Type Severity Reaction Status Date / Time No Known Allergies Allergy Unverified 01/07/23 14:22 Home Medication Medication Instructions Recorded melatonin 3 mg capsule 3 mg PO HS PRN 04/29/20 metoprolol tartrate 25 mg tablet 25 mg PO BID 04/29/20 zhffujoe-zzg-orbmi acid 300 1 tab PO DAILY 04/29/20 mcg-lycopene 600 mcg-lutein 300 mcg tablet (Centrum Silver Men) metformin 500 mg tablet 500 mg PO BID 05/01/20 aspirin 81 mg chewable tablet 81 mg PO DAILY 10/01/22 atorvastatin 40 mg tablet (Lipitor) 40 mg PO DAILY 10/01/22 omeprazole 20 mg capsule,delayed 20 mg PO DAILY #90 caps 10/08/22 release coenzyme Q10 75 mg capsule (Ultra 75 mg PO DAILY 12/23/22 CoQ10) Current Visit Medications: Current Medications Generic Name Dose Route Start Last Admin Trade Name Freq PRN Reason Stop Dose Admin Hyoscyamine Sulfate 0.125 mg 01/07/23 04:23 Hyoscyamine 0.125 Mg Sl/Oral/Chew SL 02/06/23 04:22 DIRECTED PRN Ringer's Solution 1,000 mls @ 80 mls/hr 01/07/23 06:00 IV 02/05/23 23:59 INFUSION [facility] IV Miscellaneous Supplies 1 each 01/07/23 06:00 Iv Access IV 02/05/23 23:59 DIRECTED [facility] Ondansetron HCl 4 mg 01/07/23 04:23 Ondansetron 4 Mg/2 Ml Vial IVP 02/06/23 04:22 Q4H PRN PRN Nausea / Vomiting Sodium Chloride 0 ml 01/07/23 06:00 Normal Saline Flush 10 Ml Syr IV 02/05/23 23:59 PRN PRN Sodium Chloride 0 ml 01/07/23 06:00 Normal Saline 10 Ml Vial IJ 02/05/23 23:59 DIRECTED PRN Sterile Water 0 ml 01/07/23 06:00 Water,Injection,Sterile 10 Ml Vial IJ 02/05/23 23:59 DIRECTED PRN PFSH Active Problems Active Problems: Problem Status Onset Code Family history of colon cancer in father Z80.0 Adenomatous polyps D36.9 Diverticula of colon K57.30 GERD (gastroesophageal reflux disease) K21.9 Chronic cough R05.3 Plantar fasciitis M72.2 Hx of supraventricular tachycardia Z86.79 Premature ventricular beat I49.3 Diabetes mellitus E11.9 Joint pain M25.50 Seasonal allergies J30.2 Sequelae of injury of head S09.90XS Tachycardia R00.0 Syncope and collapse R55 Ascending aorta dilatation I77.810 Fatty liver K76.0 Inguinal hernia K40.90 Nephrolithiasis N20.0 Sinusitis J32.9 Nevus D22.9 Umbilical hernia K42.9 Medical History Medical History Cough Esophageal spasm Family history of colon cancer Hyperlipidemia Hypoxia Inguinal hernia, left Left knee pain Plantar fasciitis, right Right shoulder pain URI (upper respiratory infection) Surgical History Surgical History Colonoscopy - IV Sedation Normal 2009 Colonoscopy - MAC (01/23/18) surgery to left fingers wisdome teeth removal Tobacco Smoking/Tobacco Use Status: Former Tobacco Use Alcohol Alcohol Intake: current Alcohol intake frequency: a few times a week Alcohol type: beer Substance Use Substance use: Never Substance use type: does not use Vital Signs and Lab Results Vital Signs Most Recent Vital Signs in EMR: Most Recent Vital Signs Temp Pulse Resp 36.5 C 76 16 01/07/23 14:17 01/07/23 14:17 01/07/23 14:17 Point of Care Results Point of Care Results: Finger Stick Blood Glucose 104 01/07/23 14:25 Lab Results Blood Type / Crossmatch: No Data to Display Complete Blood Count: No Data to Display Complete Metabolic Panel: No Data to Display Liver Function Panel: No Data to Display Coagulation Panel: No Data to Display Cardiac Panel: No Data to Display Arterial Blood Gas: No Data to Display Venous Blood Gas: No Data to Display Pancreas Panel: No Data to Display Thyroid Panel: No Data to Display Infectious Disease: No Data to Display Blood Cultures: No Data to Display Toxicology Panel: No Data to Display Anesthesia Assessment and Plan Anesthesia History Personal History: No History of Anesthesia Complications Family History: No Family History of Anesthesia Complications Exercise Tolerance Exercise Tolerance: Metabolic Equivalents>4 Pertinent Negatives Pertinent Negatives: No Symptoms of GERD, No Major Cardiovascular Symptoms or Complaints and No Major Pulmonary Symptoms or Complaints Cardiac & Pulmonary Exam Cardiac Exam: Normal S1/S2 Heart Sounds Pulmonary Exam: Clear Bilateral Breath Sounds Implantable Cardiac Device Does patient have a Pacemaker or an ICD?: No Airway Exam Known Difficult Airway: No Mallampati Class: 2 Mouth Opening: Normal (> 3cm) Thyromental Distance: Greater than 3 cm Neck Range of Motion: Full ROM Neck Circumference: Normal Teeth Condition: Normal Dentition ASA Classification ASA Score: ASA 2 Emergency Case?: No NPO Status NPO Status: NPO Clears >2 hours, Solids >8 hours Anesthesia Plan Resuscitation Status: Full Code Anesthesia Technique: General Anesthesia Airway Planned: Natural Airway Monitors Used: Standard Monitors
[2023-01-07 15:01] VITALS: BMI 30.4
[2023-01-07] MEDS: Lactated Ringers 1,000 ML 80 ML IV (15:11)
[2023-01-07 15:59] VITALS: BP 105/86; PULSE 83; RESP 18; TEMP 36.4; O2SAT 93
--- NOTE | 2023-01-07 16:08 | W.ANESPOSTOP ---
Postoperative Evaluation Date, Time and Location Date Performed: 01/07/23 Time Performed: 16:01 Patient Location: Day Surgery Unit Vital Signs Most Recent Imported Vital Signs: Most Recent Vital Signs Temp Pulse Resp BP Pulse Ox 36.4 C L 83 18 105/86 93 01/07/23 15:59 01/07/23 15:59 01/07/23 15:59 01/07/23 15:59 01/07/23 15:59 Pain Score Most Recent Pain Score: Most Recent Pain Score Pain Level 0 01/07/23 15:59 Assessment Mental Status: Awake (Alert & Oriented to Patient Baseline) Airway and Respiratory Function: Patent airway with normal (patient baseline) respiratory exam Cardiovascular Function: Hemodynamically Stable Hydration Status: Adequately Hydrated Nausea & Vomiting: No Nausea or Vomiting Pain: Pt. Denies Any Pain Peripheral Nerve Block: Patient did not receive a nerve block
[2023-01-07 16:30] VITALS: BP 132/87; PULSE 73; RESP 18; TEMP 36.5; O2SAT 96
== END 2023-01-07 13:17 | disposition home or self-care (01) ==
PROVIDERS: PCP Nurse Practitioner Family; Visit Provider Surgery
PROC: 0DJD8ZZ Inspection of Lower Intestinal Tract, Via Natural or Artificial Opening Endoscopic (ICD-10-PCS; CPT 45378; principal; 2023-01-07 14:00)
DX: Z12.11 Encounter for screening for malignant neoplasm of colon; Z80.0 Family history of malignant neoplasm of digestive organs; Z86.010 Personal history of colon polyps; J44.9 Chronic obstructive pulmonary disease, unspecified; F17.210 Nicotine dependence, cigarettes, uncomplicated
CPT/HCPCS: 45378; J2001; J2704

== ENCOUNTER 2023-04-18 15:14 | Outpatient (REF) | payer OTHER, SELFPAY ==
[2023-04-18 20:50] LABS: Hemoglobin A1C 6.6 % (<5.7)
[2023-04-18 21:21] LABS: ALT 41 U/L (16-63); AST 28 U/L (15-37); HDL Cholesterol 51 mg/dL (40-60); LDL CHOLESTEROL 91 mg/dL (<100)
[2023-04-18 21:58] LABS: Creatine Kinase 224 U/L (39-308)
== END 2023-04-18 15:15 | disposition home or self-care (01) ==
LOC: NCHCN 15:14
PROVIDERS: PCP Nurse Practitioner Family; Visit Provider Nurse Practitioner Family
DX: E78.5 Hyperlipidemia, unspecified (principal); E11.9 Type 2 diabetes mellitus without complications; R00.0 Tachycardia, unspecified
CPT/HCPCS: 82550; 83721; 83036; 83718; 84450; 84460; 87480; 87510; 87660

== ENCOUNTER 2023-08-08 16:59 | Outpatient (REF) | payer OTHER, SELFPAY ==
[2023-08-09 18:52] LABS: PSA, Screening 0.7 ng/mL (<=3.5)
== END 2023-08-08 17:00 | disposition home or self-care (01) ==
LOC: NCHCN 16:59
PROVIDERS: PCP Nurse Practitioner Family; Visit Provider Nurse Practitioner Family
DX: Z12.5 Encounter for screening for malignant neoplasm of prostate (principal)
CPT/HCPCS: 84153

== ENCOUNTER 2023-10-05 15:01 | Outpatient (CLI) | payer OTHER, SELFPAY ==
[2023-10-05 16:16] LABS: Vitamin B12 579 pg/mL (193-986)
== END 2023-10-05 15:02 | disposition home or self-care (01) ==
LOC: LBO 15:01
PROVIDERS: PCP Nurse Practitioner Family; Visit Provider Nurse Practitioner Adult Health
DX: R41.89 Other symptoms and signs involving cognitive functions and awareness (principal)
CPT/HCPCS: 36415; 82607; 84443

== ENCOUNTER → 2023-10-06 01:48 | Outpatient (CLI) | payer OTHER, SELFPAY ==
--- NOTE | 2023-10-06 | DI.MRI_ITS ---
Exam(s) MR BRAIN WO EXAM: MR BRAIN WO CLINICAL HISTORY: COGNITIVE IMPAIRMENT, R41.89 TECHNIQUE: Multiplanar multisequence MRI of the brain was performed. COMPARISON: No exams were available for comparison FINDINGS: CEREBRAL PARENCHYMA: There is no evidence of intracranial hemorrhage, mass effect, or shift of midline structures. There are no extra-axial fluid collections. Ventricles are not enlarged or shifted. There is no significant focal signal abnormality in the cerebellar hemispheres nor within the ervin, m idbrain, and thalami. There are few tiny nonspecific foci of FLAIR bright signal abnormality in the periventricular white m atter, all less than 3 mm and not associated with hemorrhage, surrounding edema, nor restricted diffu che. There is no significant focal signal abnormality evident on diffusion imaging to suggest acute ischem ic event. The amount of involutional changes consistent with this patient's age. There is no prominent atrophy . PITUITARY GLAND: No mass nor parasellar abnormality. No obvious abnormality in the cavernous sinuses. FLOW VOIDS: The expected flow void are noted. No evidence of obvious aneurysm nor obvious vascular ma lformation. PARANASAL SINUSES: Paranasal sinuses appear unremarkable. However, there is prominent signal abnorma lity effusion in the left-sided mastoid air cells. Right mastoid air cells appear clear. ORBITS: No obvious findings. IMPRESSION: No significant acute intracranial findings on this noninfused MRI scan of the brain. There are few small nonspecific tiny FLAIR bright white matter foci. These measure less than 3 mm. No restricted diffusion. There is prominent effusion in the left mastoid air cells. Similar finding not seen on the opposite- right side and the paranasal sinuses are clear. DATA REPOSITORY:
== END ==
PROVIDERS: PCP Nurse Practitioner Family; Visit Provider Nurse Practitioner Adult Health
DX: R41.89 Other symptoms and signs involving cognitive functions and awareness (principal)
CPT/HCPCS: 70551

== ENCOUNTER 2023-10-22 17:36 | Emergency (ER) | payer OTHER, SELFPAY ==
[2023-10-22 17:38] VITALS: BP 148/105; PULSE 119; RESP 18; TEMP 36.1; O2SAT 95
--- NOTE | 2023-10-22 18:49 | DI.RAD_ITS ---
Exam(s) XR HAND RT COMPLETE EXAM: XR HAND RT COMPLETE CLINICAL HISTORY: finger injury. TECHNIQUE: 2D digital imaging was performed of the right hand. Three images were obtained. AP, late ral and oblique views were obtained. COMPARISON: No exams were available for comparison FINDINGS: BONES: No acute fracture is present. No bony destructive lesion is seen. JOINTS: No dislocation present. There are mild degenerative changes seen in the hand characterized by joint space narrowing and osteophytes particularly in the interphalangeal joints. SOFT TISSUE: Normal. IMPRESSION: No acute fracture or dislocation. DATA REPOSITORY: RADIATION DOSE DELIVERED:
--- NOTE | 2023-10-22 20:08 | DI.VRAD_ITS ---
PROCEDURE INFORMATION: Exam: XR Right Hand Exam date and time: 10/22/2023 6:42 PM Age: 58 years old Clinical indication: Injury or trauma; Crushing; Hand; Right; Injury date: 10/22/23; Patient HX: Finger injury TECHNIQUE: Imaging protocol: Radiologic exam of the right hand. Views: 3 or more views. COMPARISON: No relevant prior studies available. FINDINGS: Bones/joints: Normal. Soft tissues: Normal. IMPRESSION: No acute findings. Dictated and Authenticated by: Travon Erickson MD. Ordering:JORDAN Berkowitz MD
--- NOTE | 2023-10-22 20:52 | W.ED.GENAD ---
Discharge Plan Disposition Patient Disposition: Home Condition: Stable Discharge Details Clinical Impression: Finger laceration Primary Care Provider: Shoshana Wade ED Provider: Smith Moulton Home Meds and New Rx's Prescriptions: No Action Centrum Silver Men 300-600-300 mcg tablet 1 tab PO DAILY metoprolol tartrate 25 mg tablet 25 mg PO BID metformin 500 mg tablet 500 mg PO BID aspirin 81 mg tablet,chewable 81 mg PO DAILY atorvastatin [Lipitor] 40 mg tablet 40 mg PO DAILY Ultra CoQ10 75 mg capsule 75 mg PO DAILY cholecalciferol (vitamin D3) 50 mcg (2,000 unit) capsule 50 mcg PO DAILY Discharge Instructions Instructions: Finger Laceration (ED) Additional Instructions: Keep wound clean with soap and water. Keep dry. If you are not leaving the house, or doing any work, please cover the wounds. You have [address] The stitches will dissolve in about 7 to 10 days. After 24 hours, you can start putting topical antibiotic ointment on it. You may notice some soreness and bruising worsened tomorrow. You can apply ice pack to the area to help with this. Your nail may fall off though it appears intact at this time. If you develop any signs of redness, worsening swelling, worsening pain or drainage from the wound, please get reevaluated as the signs might be concerning for infection. Discharge Data Discharge Date/Time-TO BE ENTERED AT DEPARTURE: 10/22/23 19:27 HPI General Date/Time Provider Initiated Documentation: 10/22/23 17:55. Limitations to Documentation: no limitations. Information obtained by: patient. HPI Narrative: 58-year-old gentleman without significant pertinent medical history presents for evaluation of finger laceration. He reports just prior to arrival his right ring finger was smashed between wood. He reports his tetanus is up-to-date. He reports that he had some bleeding, but this is resolved. Pain is moderate, worse with touching area. Related Data Home Medications Medication Instructions Recorded Confirmed metoprolol tartrate 25 mg tablet 25 mg PO BID 04/29/20 10/22/23 pzaonbli-rj-gkrtw 300 mcg-K 60 1 tab PO DAILY 04/29/20 10/22/23 mcg-lycop 600 mcg-lutein 300 mcg tablet (Centrum Silver Men) metformin 500 mg tablet 500 mg PO BID 05/01/20 10/22/23 aspirin 81 mg chewable tablet 81 mg PO DAILY 10/01/22 10/22/23 atorvastatin 40 mg tablet (Lipitor) 40 mg PO DAILY 10/01/22 10/22/23 coenzyme Q10 75 mg capsule (Ultra 75 mg PO DAILY 12/23/22 10/22/23 CoQ10) cholecalciferol (vitamin D3) 50 50 mcg PO DAILY 08/17/23 10/22/23 mcg (2,000 unit) capsule Allergies Allergy/AdvReac Type Severity Reaction Status Date / Time No Known Allergies Allergy Unverified 10/22/23 17:42 General Stated Complaint: Laceration CHAUNCEY: 3 Exam Narrative Exam Narrative: Review of Systems: All systems reviewed & are unremarkable except as noted in HPI and below Well-developed, no acute distress NCAT PERRL, normal conjunctiva RRR Unlabored respiratory effort Nondistended abdomen Right hand ring finger with 1.5cm flap laceration on the palmar aspect, no foreign body or deformity, nailbed intact, not loose, no subungual hematoma No rashes or lesions. no focal neurologic deficits Appropriate mood and affect Course Vital Signs Vital signs: Vital Signs Temperature 36.1 C L 10/22/23 17:38 Pulse 119 H 10/22/23 17:38 Respiratory Rate 18 10/22/23 17:38 Blood Pressure 148/105 H 10/22/23 17:38 Pulse Oximetry 95 10/22/23 17:38 Temperature 36.1 C L 10/22/23 17:38 Temperature Source Temporal Artery Scan 10/22/23 17:38 Pulse 119 H 10/22/23 17:38 Respiratory Rate 18 10/22/23 17:38 Respiratory Effort Normal, Non-Labored 10/22/23 17:43 Blood Pressure 148/105 H 10/22/23 17:38 Blood Pressure Position Sitting 10/22/23 17:38 Pulse Oximetry 95 10/22/23 17:38 Oxygen Delivery Method Room Air 10/22/23 17:38 Oxygen Flow Rate 0 10/22/23 17:38 Pain Level 2 10/22/23 19:26 Procedures Laceration Laceration 1: Site: hand Side (If applicable): right Size (cm): 1.5 Description: linear and clean Depth: simple, single layer Local Anesthetic: Lidocaine 1% (Digital block, 5 mL) Amount of anesthesia used (mL): 5 Pre-repair: wound explored, irrigated extensively and deep structures intact Skin layer closed with: other (Chromic Gut) Size (cm): 5-0 Number of sutures: 6 Technique: simple, interrupted Medical Decision Making Emergent evaluation of finger injury. Initial differential includes laceration, nailbed injury, fracture. Tetanus is up-to-date does not need to be given. Wound is fairly straightforward. Cleaned and irrigated. Digital block for anesthesia provided. X-ray obtained, there is no evidence of fracture. After x-ray, the wound was additionally cleaned and explored, no foreign body, repaired without complication. Discharged with wound instructions. Return precautions provided. Medical Records Medical records reviewed: Yes I reviewed the patient's medical records. Quality:[facility] Health Related Social Needs: No Data to Display [facility] All Active Problems Finger laceration (Acute) Cognitive impairment (Acute) Rupture of left tympanic membrane (Acute) Normal colonoscopy (Acute ~01/07/23) Family history of colon cancer in father (Acute) Adenomatous polyps (Acute) Diverticula of colon (Acute) GERD (gastroesophageal reflux disease) (Chronic) Chronic cough (Acute) Plantar fasciitis (Acute) Hx of supraventricular tachycardia (Acute) Premature ventricular beat (Acute) Diabetes mellitus (Chronic) Joint pain (Acute) Seasonal allergies (Acute) Sequelae of injury of head (Acute) Tachycardia (Acute) Syncope and collapse (Acute) Ascending aorta dilatation (Acute) Fatty liver (Acute) Inguinal hernia (Acute) Nephrolithiasis (Chronic) Sinusitis (Acute) Nevus (Acute) Umbilical hernia (Acute) Medical History Intracranial injury Hypoxemia Acute joint pain Aortic ectasia, thoracoabdominal Melanocytic nevus Inguinal hernia, left Hypoxia Esophageal spasm Right shoulder pain Left knee pain Hyperlipidemia Cough URI (upper respiratory infection) Plantar fasciitis, right Family history of colon cancer Surgical History History of colonoscopy (~12/2022) wisdome teeth removal surgery to left fingers Colonoscopy - MAC (01/23/18) Colonoscopy - IV Sedation Normal 2009 Family History Other Colon cancer Social History Smoking/Tobacco Use Status: Former Tobacco Use Smoking risk assessment performed?: Yes Alcohol Intake: current Alcohol Intake frequency: a few times a week Alcohol type: beer Drug use: Never Substance use type: does not use Household members: spouse Housing: house Number of Children: 3 number of grandchildren: 5 What is your relationship status?: Panel score (0-1 are the most socially isolated patients): 1 Do you feel safe at home: Yes Do you feel safe in your relationship?: Yes PAWSS Have you Been Recently Intoxicated or Drunk Within the Last 30 days?: No Have you Ever Experienced Previous Episodes of Alcohol Withdrawal?: No Have you ever Experienced Withdrawal Seizures?: No Have you ever Experienced Delirium Tremens(DT)s?: No Have you ever undergone Alcohol Rehabilitation Treatment (i.e, inpt ot outpatient treatment programs)?: No Have you ever Experienced Blackouts?: No Have you ever Combined Alcohol with other Downers within the last 90 days?: No Have you ever Combined Alcohol with any other Substance of Abuse during the last 90 days?: No Positive Blood Alcohol level on Presentation? [PCS.BAL]: No Evidence of Increased Autonomic Activity (i.e. HR>120, tremor, sweating, agitation, nausea)?: No Result: 0
== END 2023-10-22 19:27 | disposition home or self-care (01) ==
PROVIDERS: Emergency Provider Emergency Medicine; PCP Nurse Practitioner Family
DX: S61.214A Laceration without foreign body of right ring finger without damage to nail, initial encounter (principal); W22.8XXA Striking against or struck by other objects, initial encounter
CPT/HCPCS: 12001; 99283; 73130

== ENCOUNTER 2024-05-23 13:30 | Outpatient (REF) | payer OTHER, SELFPAY ==
[2024-05-23 16:44] LABS: HCT 47.7 % (40.0-50.0); HGB 16.6 g/dL (13.5-17.5); MCH 32.3 pg (27.0-33.0); MCHC 34.8 % (32.0-36.0); MCV 93 fL (80-95); MPV 9.9 fL (8.0-11.0); Platelet Count 287 10^3/uL (130-400); RBC 5.14 10^6/uL (4.36-5.78); RDW 11.8 % (11.8-14.1); RDW-SD 40.1 fL; WBC 5.81 10^3/uL (4.4-10.8)
[2024-05-23 17:27] LABS: ALT 33 U/L (16-63); AST 25 U/L (15-37); Albumin 3.7 g/dL (3.4-5.0); Alkaline Phosphatase 98 U/L (46-116); Anion Gap 12.9 mmol/L (3-11); BUN 24 mg/dL (7-18); Bilirubin, Total 0.65 mg/dL (0.2-1.0); CO2 24.1 mmol/L (21.0-32.0); CREATININE 1.1 mg/dL (0.70-1.30); Calcium 9.4 mg/dL (8.5-10.1); Calculated LDL 81 mg/dL (<100); Chloride 105 mmol/L (98-107); Cholesterol 179 mg/dL (<200); Estimated GFR 77.33 (mL/min/1.73m2); Glucose 151 mg/dL (74-106); HDL Cholesterol 55 mg/dL (40-60); Sodium 142 mmol/L (136-145); Total Protein 7.1 g/dL (6.4-8.2); Triglyceride 217 mg/dL (<150)
== END 2024-05-23 13:31 | disposition home or self-care (01) ==
LOC: NCHCN 13:30
PROVIDERS: PCP Nurse Practitioner Family; Visit Provider Physician Assistant Medical
DX: E78.5 Hyperlipidemia, unspecified (principal); E11.9 Type 2 diabetes mellitus without complications; K76.0 Fatty (change of) liver, not elsewhere classified
CPT/HCPCS: 80053; 80061; 85027; 83036

== ENCOUNTER 2025-03-21 11:23 | Outpatient (REF) | payer OTHER, SELFPAY ==
[2025-03-21 16:09] LABS: Abs Immature Grans 0.02 10^3/uL (0.0-0.06); HCT 51.2 % (40.0-50.0); HGB 17.7 g/dL (13.5-17.5); Immature Grans % 0.3 %; MCH 31.0 pg (27.0-33.0); MCHC 34.6 % (32.0-36.0); MCV 90 fL (80-95); MPV 9.8 fL (8.0-11.0); Platelet Count 292 10^3/uL (130-400); RBC 5.71 10^6/uL (4.36-5.78); RDW 11.9 % (11.8-14.1); RDW-SD 38.7 fL; WBC 6.33 10^3/uL (4.4-10.8)
[2025-03-21 16:19] LABS: ALT 35 U/L (16-63); AST 31 U/L (15-37); Albumin 4.0 g/dL (3.4-5.0); Alkaline Phosphatase 96 U/L (46-116); Anion Gap 10.2 mmol/L (3-11); BUN 24 mg/dL (7-18); Bilirubin, Total 0.8 mg/dL (0.2-1.0); CO2 24.8 mmol/L (21.0-32.0); Calcium 9.2 mg/dL (8.5-10.1); Calculated LDL 98 mg/dL (<100); Chloride 102 mmol/L (98-107); Cholesterol 171 mg/dL (<200); Estimated GFR 86.16 (mL/min/1.73m2); Glucose 109 mg/dL (74-106); HDL Cholesterol 53 mg/dL (>or=40); Potassium 4.6 mmol/L (3.5-5.1); Sodium 137 mmol/L (136-145); Total Protein 7.6 g/dL (6.4-8.2); Triglyceride 101 mg/dL (<150)
== END 2025-03-21 11:24 | disposition home or self-care (01) ==
LOC: NCHCN 11:23
PROVIDERS: PCP Physician Assistant Medical; Visit Provider Physician Assistant Medical
DX: E78.5 Hyperlipidemia, unspecified (principal); K76.0 Fatty (change of) liver, not elsewhere classified
CPT/HCPCS: 80053; 80061; 85025